=== PATIENT | male | born 1980 | race Caucasian/White ===

== ENCOUNTER 2018-06-18 15:17 | Emergency (ER) | payer OTHER ==
--- NOTE | 2018-06-18 15:43 | EDM.PDOC ---
ED HPI GENERAL MEDICAL PROBLEM - General Stated Complaint: caught finger in scale at work Time Seen by Provider: 06/18/18 15:25 Source of Information: Reports: Patient History Limitations: Reports: No Limitations - History of Present Illness INITIAL COMMENTS - FREE TEXT/NARRATIVE: Was at work and he got his 3rd finger left hand caught in the scale. He then pulled it out. He has pain to the end of the 3rd finger. He denies any bleeding from it. Does have increase in throbbing with any movement. Has good sensation to the end of the finger. Is not able to flex the tip of the finger. Onset: Today Location: Reports: Other (left third finger) Quality: Reports: Sharp, Throbbing Improves with: Reports: Other (ice and elevation) Worsens with: Reports: Movement Associated Symptoms: Reports: No Other Symptoms - Related Data Allergies Allergy/AdvReac Type Severity Reaction Status Date / Time Penicillins Allergy Unknown Hives Verified 06/18/18 15:30 Past Medical History - Past Health History Medical/Surgical History: Denies Medical/Surgical History Social & Family History - Tobacco Use Smoking Status *Q: Never Smoker Review of Systems - Review of Systems Review Of Systems: See Below Constitutional: Reports: No Symptoms Musculoskeletal: Reports: Other (see HPI) ED EXAM, GENERAL - Physical Exam Exam: See Below Exam Limited By: No Limitations General Appearance: Alert, WD/WN, Moderate Distress Extremities: Other (left third finger is very tender to palpation. No bleeding noted from the area. Finger appears flattened. Nail is intact. Unable to flex distal joint. tender to the MIP and DIP joints.) Skin Exam: Warm, Dry, Intact Course - Orders/Labs/Meds Orders: Active Orders 24 hr Category Date Time Status Hand Comp Min 3V Lt [CR] Stat Exams 06/18/18 15:32 Ordered - Re-Assessments/Exams Free Text/Narrative Re-Assessment/Exam: 06/18/18 15:44 Reviewed xray with pt. No fracture noted. Will dress with ROB and dressing May return to work with dressing on and no contact with finger. Follow up as needed. Departure - Departure Time of Disposition: 15:46 Disposition: Home, Self-Care 01 Condition: Good Clinical Impression: Abrasion of finger of left hand Qualifiers: Encounter type: initial encounter Qualified Code(s): S60.419A - Abrasion of unspecified finger, initial encounter - Discharge Information *PRESCRIPTION DRUG MONITORING PROGRAM REVIEWED*: Not Applicable *COPY OF PRESCRIPTION DRUG MONITORING REPORT IN PATIENT NEEL: Not Applicable Additional Instructions: keep clean and dry change dressing daily with antibiotic ointment and dressing recheck if any concerns for infection Ice and elevation tonight tylenol or advil as needed for discomfort - Problem List & Annotations (1) Abrasion of finger of left hand SNOMED Code(s): 497107314, [id number] Code(s): S60.419A - ABRASION OF UNSPECIFIED FINGER, INITIAL ENCOUNTER Status: Acute Priority: High Qualifiers: Encounter type: initial encounter Qualified Code(s): S60.419A - Abrasion of unspecified finger, initial encounter - Problem List Review Problem List Initiated/Reviewed/Updated: Yes - My Orders Last 24 Hours: My Active Orders 06/18/18 15:32 Hand Comp Min 3V Lt [CR] Stat - Assessment/Plan Last 24 Hours: My Active Orders 06/18/18 15:32 Hand Comp Min 3V Lt [CR] Stat
[2018-06-18] MEDS: Bacitracin/Neomycin/Polymyxin B Oint 0.9 GM U/D Packet TOP ONE (15:50)
== END 2018-06-18 15:56 | disposition home or self-care (01) ==
LOC: CC.ED 15:17
DX: S60.413A Abrasion of left middle finger, initial encounter (principal); Z88.0 Allergy status to penicillin; W22.8XXA Striking against or struck by other objects, initial encounter
CPT/HCPCS: 73130-LT; 99283-25